=== PATIENT | female | born 1990 | race Caucasian/White ===

== ENCOUNTER → 2017-05-31 | Outpatient (CLI) | payer OTHER ==
--- NOTE | 2017-06-01 11:07 | RADRPT ---
PROCEDURE: I - 123 thyroid uptake and scan CLINICAL INDICATION: 27 -year-old patient with hyperthyroidism. TECHNIQUE: Following the oral administration of 0.19 mCi of I - 123, thyroid uptake and scan was o btained. COMPARISON: No prior thyroid scans. FINDINGS: 6 hours radioiodine uptake is 42 % (normal range is 5% - 20%). 24 hours radioiodine uptake is 56 % (normal range is 7% - 35%). The thyroid gland demonstrates a mildly enlarged thyroid gland (approximately 1.5 -2 x normal size) with diffusely increased homogeneous distribution of radionuclide throughout the thyroid gland. IMPRESSION: The scintigraphic pattern of the abnormalities is most compatible with Graves disease. RPTAT: HH .Mery Minor MD, Date Time Electronically viewed and signed by .Mery Minor MD, on 06/01/2017 11:07 .L/
== END | disposition home or self-care (01) ==
LOC: NUC 08:39
PROVIDERS: ATTEND Specialist
DX: E05.00 Thyrotoxicosis with diffuse goiter without thyrotoxic crisis or storm (principal)
CPT/HCPCS: 78014; A9516

== ENCOUNTER → 2017-06-08 | Outpatient (CLI) | END | disposition home or self-care (01) ==